=== PATIENT | female | born 1990 | race African-American/Black ===

== ENCOUNTER 2021-06-15 17:43 | Emergency (ER) | payer OTHER, SELFPAY ==
[2021-06-15 17:45] VITALS: BP 116/86; PULSE 69; RESP 15; TEMP 36.4; O2SAT 100
[2021-06-15 19:22] LABS: Add Urine Microscopic? YES; Appearance Urine Clear (Clear); Bacteria Urine 1+ /hpf; Bilirubin Urine Negative (Negative); Blood Urine Negative (Negative); Color Urine Yellow (Yellow); Glucose Urine UA Negative (Negative); Ketones Urine Negative (Negative); Leukocyte Esterase Ur Negative LEU/UL (Negative); Mucus Urine Rare /lpf; Nitrate Urine Positive (Negative); Protein Urine Negative (Negative); RBC Urine 0-2 /hpf (0-2); Specific Grav Ur 1.023 (1.001-1.035); Squamous Epithelial Cell Urine Few /hpf (Few); WBC Urine 0-3 /hpf
--- NOTE | 2021-06-15 19:59 | ED.GENADULT ---
HPI - General Adult General Chief complaint: Urogenital-Female Stated complaint: painful urination Time Seen by Provider: 06/15/21 18:52 Source: patient and RN notes reviewed Mode of arrival: ambulatory Limitations: no limitations History of Present Illness HPI narrative: Patient is a 30-year-old female who presents to emergency department for evaluation of burning with urination that has been present now for the last several days she denies any concern for STD she denies abdominal pain flank pain hematuria or other complaints has not taken anything for her symptoms presents nondistressed. Related Data Allergies Allergy/AdvReac Type Severity Reaction Status Date / Time No Known Allergies Allergy Unverified 06/15/21 18:51 Review of Systems Review of Systems: All systems reviewed & are unremarkable except as noted in HPI and below Exam Narrative: GENERAL: Well-appearing, well-nourished, and in no acute distress. HEAD: Normocephalic, atraumatic. EYES: PERRLA and EOMI. ENT: Nares clear, no rhinorrhea or epistaxis. Mucous membranes moist. CHEST: Clear to auscultation. No respiratory distress. No wheezes rales or rhonchi HEART: Regular rate and rhythm. No murmur heard. EXTREMITIES: Normal range of motion. No edema. SKIN: Warm, dry, no rash. NEURO: No focal deficits. Alert and oriented x3. PSYCH: Normal mood and affect. Course Course Emergency Course: Patient in the room nondistressed afebrile nontoxic-appearing will be treated for STDs felt appropriate for outpatient reevaluation provided with reasons to return Vital Signs Vital signs: Vital Signs Temperature 97.6 F 06/15/21 17:45 Pulse Rate 69 06/15/21 17:45 Respiratory Rate 15 06/15/21 17:45 Blood Pressure 116/86 06/15/21 17:45 Pulse Oximetry 100 06/15/21 17:45 Temperature 97.6 F 06/15/21 17:45 Pulse Rate 69 06/15/21 17:45 Respiratory Rate 15 06/15/21 17:45 Blood Pressure 116/86 06/15/21 17:45 Pulse Oximetry 100 06/15/21 17:45 Medical Decision Making [facility] Narrative Medical decision making narrative: Patient in the room nondistressed aware of case findings treatment plan and diagnosis agreeing to follow-up as instructed or to return if symptoms worsen or concerns Vital Signs Vital Signs: Vital Signs Temperature 97.6 F 06/15/21 17:45 Pulse Rate 69 06/15/21 17:45 Respiratory Rate 15 06/15/21 17:45 Blood Pressure 116/86 06/15/21 17:45 Pulse Oximetry 100 06/15/21 17:45 Temperature 97.6 F 06/15/21 17:45 Pulse Rate 69 06/15/21 17:45 Respiratory Rate 15 06/15/21 17:45 Blood Pressure 116/86 06/15/21 17:45 Pulse Oximetry 100 06/15/21 17:45 Lab Data Labs: Lab Results 06/15/21 Range/Units 19:02 Urine Color Yellow (Yellow) Urine Appearance Clear (Clear) Urine pH 5.0 (5.0-9.0) Ur Specific Barton 1.023 (1.001-1.035) Urine Protein Negative (Negative) mg/dL Urine Glucose (UA) Negative (Negative) mg/dL Urine Ketones Negative (Negative) mg/dL Ur Blood (Man) Negative (Negative) Urine Nitrate Positive H (Negative) Urine Bilirubin Negative (Negative) Urine Urobilinogen 4.0 H (<2.0) mg/dL Leukocyte Esterase Rfl Negative (Negative) HAVEN/UL Urine RBC 0-2 (0-2) /hpf Urine WBC 0-3 /hpf Ur Squamous Epith Cells Few (Few) /hpf Urine Bacteria 1+ H /hpf Urine Mucus Rare /lpf UCG Bedside Result Negative Reference Range: Negative Discharge Plan Discharge Clinical Impression: Urinary tract infection Patient Disposition: Home, Self-Care Condition: Stable Instructions: Antibiotic Form, Urinary Tract Infection in Women (ED) Additional Instructions: Follow up with primary care in the next 2-3 days for re-evaluation. Antibiotics as prescribed. Increase fluid intake. Tylenol and Motrin for pain and or fever if needed. Follow up with your doctor for further care.
== END 2021-06-15 20:18 | disposition home or self-care (01) ==
PROVIDERS: Family Medicine; Emergency Provider Emergency Medicine
DX: N39.0 Urinary tract infection, site not specified (principal)
CPT/HCPCS: 81001; 81025; 99283